=== PATIENT | female | born 1965 | race Hispanic/Latino ===

== ENCOUNTER 2020-09-02 19:57 | Emergency (ER) | payer SELFPAY ==
[2020-09-02] MEDS ORDERED: Ketorolac Tromethamine 30 MG/ML VIAL ONE (22:08)
== END 2020-09-02 22:21 | disposition home or self-care (01) ==
LOC: ERS 19:57 → EDBD 19:57 → ERS 22:21
DX: S32.019A Unspecified fracture of first lumbar vertebra, initial encounter for closed fracture (principal); S32.029A Unspecified fracture of second lumbar vertebra, initial encounter for closed fracture; W19.XXXA Unspecified fall, initial encounter
CPT/HCPCS: 72131; 96372; J1885